=== PATIENT | female | born 1960 | race Caucasian/White ===

== ENCOUNTER → 2018-08-19 | Day surgery (SDC) | payer OTHER ==
[~2018-08-19] MED LIST: ATORVASTATIN CA80 MG PO; CETI10TA22 PO; FLUT100D IH; HYDR12.58 PO; IV RINGERS,LACTATED 1000ML 1,000 ML IV SCH; LEVO125T5 PO; LISI-130 PO; METF10007 PO; MONT10TA6 PO; PROPOFOL 20 ML IV ONE; RANI300C PO
[2018-08-19 10:33] VITALS: BP 128/71
--- NOTE | 2018-08-20 17:08 | PATHOLOGY ---
[facility] Accession Number: [id number] . 01 Material submitted: . PART A: SMALL BOWEL BIOPSY PART B: GASTRIC ANTRUM BIOPSY PART C: DISTAL ESOPHAGUS BIOPSY . 01 Clinical history: . GERD . 02 Diagnosis: A. Small bowel biopsy: - No significant pathologic abnormalities. . B. Gastric biopsy, antrum: - Chronic gastritis, mild. . C. Esophageal biopsy, distal esophagus: - Segments of hyperplastic squamous esophageal mucosa and gastric mucosa showing mild chronic inflammation, consistent with reflux esophagitis. LBQ/08/20/2018 . 02 Comment: Sections of the small bowel biopsy reveal segments of duodenal mucosa with focally prominent submucosal Nestor's glands. Where best oriented, the mucosal villi show no sprue-like changes or significant inflammatory changes. Sections of the gastric biopsy reveal segments of gastric antral and gastric body mucosa showing congestion and mild chronic inflammation. A properly controlled immunoperoxidase stain for Helicobacter is negative for Helicobacter organisms. Sections of the distal esophageal biopsy reveals segments of hyperplastic squamous esophageal mucosa and segments of gastric mucosa showing mild chronic inflammation. The findings are consistent with reflux esophagitis. There is no evidence of Lundberg's change, dysplasia, or malignancy. (JPM/db; 08/20/2018) . Special stain performed: Immunoperoxidase stain for Helicobacter on B1 . 02 Electronically signed: . Frankie Walton MD, Pathologist NPI- [id number] . 01 Gross description: . A. Received in formalin labeled "[place] Ilda, small bowel BX," are 3 segments of wiggins soft tissue measuring 1.0 x 0.7 x 0.3 cm in aggregate dimensions and ranging from 0.3 to 0.4 cm in maximum dimension. The specimen is submitted entirely in cassette A1. . B. Received in formalin labeled "Ilda López, gastric antrum BX," are 2 segments of wiggins soft tissue measuring 1.1 x 0.3 x 0.2 cm in aggregate dimensions and ranging from 0.5 to 0.6 cm in maximum dimension. The specimen is submitted entirely in cassette B1. . C. Received in formalin labeled "[place], Ilda, distal esophagus BX," are 5 segments of wiggins soft tissue measuring 1.5 x 0.9 x 0.3 cm in aggregate dimensions and ranging from 0.2 to 0.5 cm in maximum dimension. The specimen is submitted entirely in cassette C1. (TSD; 08/19/2018) TOB/TOB . 02 Pathologist provided ICD-10: K29.50, K21.0, K21.9 . 02 CPT . 648362, 345758, 485703 Specimen Comment: A courtesy copy of this report has been sent to Specimen Comment: [phone], . Specimen Comment: Report sent to and Specimen Comment: A duplicate report has been generated due to demographic updates. Performed at: 01 [facility] [address] [facility] [address] [address], [place], [place] [id number] MD Emmanuel Gleason MD Phone: [phone] Performed at: 02 [facility] [address] [place], [place] [id number] MD Frankie Walton MD Phone: [phone]
== END | disposition home or self-care (01) ==
LOC: SURG 08:33
PROVIDERS: ATTEND Internal Medicine Gastroenterology
DX: K21.0 Gastro-esophageal reflux disease with esophagitis (principal); K44.9 Diaphragmatic hernia without obstruction or gangrene; K29.50 Unspecified chronic gastritis without bleeding; K31.89 Other diseases of stomach and duodenum; I10 Essential (primary) hypertension; J45.909 Unspecified asthma, uncomplicated; E11.9 Type 2 diabetes mellitus without complications; E78.00 Pure hypercholesterolemia, unspecified; Z83.3 Family history of diabetes mellitus; Z82.49 Family history of ischemic heart disease and other diseases of the circulatory system; Z83.79 Family history of other diseases of the digestive system; Z80.3 Family history of malignant neoplasm of breast; Z90.49 Acquired absence of other specified parts of digestive tract; Z98.51 Tubal ligation status; Z79.84 Long term (current) use of oral hypoglycemic drugs; Z79.899 Other long term (current) drug therapy
CPT/HCPCS: 43239; 88305; 88342; J2704

== ENCOUNTER → 2018-09-16 | Day surgery (SDC) | payer OTHER ==
[~2018-09-16] MED LIST changes: +HYDROmorphone 2 MG/ML VIAL IV PRN; -IV RINGERS,LACTATED 1000ML 1,000 ML IV SCH; +LIDOCAINE 2% PF 5 ML VIAL. ONE; +MORPHINE SULFATE 2 MG/ML VIAL. IV PRN; +ONDANSETRON PF 4 MG/2 ML VIAL. IV PRN; +PROCHLORPERAZINE 10 MG/2 ML VIAL. IV PRN; -PROPOFOL 20 ML IV ONE; +PROPOFOL 40 ML IV ONE; +fentaNYL PF VIAL 100 MCG/2 ML VIAL IV PRN
[2018-09-16] MEDS: IV RINGERS,LACTATED 1000ML 1,000 ML IV SCH ×2 (10:05→10:07)
[2018-09-16 11:32] VITALS: BP 133/76
--- NOTE | 2018-09-17 14:07 | PATHOLOGY ---
[facility] Accession Number: [id number] . 01 Material submitted: . PART A: TERMINAL ILEUM BIOPSY PART B: RIGHT COLON BIOPSY PART C: LEFT COLON BIOPSY . 01 Clinical history: . Nausea, CRCS . 02 Diagnosis: A. Small intestine mucosa, terminal ileum biopsy: - No significant pathologic abnormalities. . B. Colonic mucosa, right colon biopsies: - No significant pathologic abnormalities. . C. Colonic mucosa, left colon biopsies: - No significant pathologic abnormalities. . (JPM:mm; 09/17/2018) [facility]/09/17/2018 . 02 Comment: Sections of the terminal ileum biopsy reveal small intestine mucosa containing a few mucosal-associated lymphoid aggregates. There are no sprue-like changes or significant inflammatory changes. Sections of the right colon and left colon biopsies appear similar and reveal multiple segments of colonic mucosa. There is no evidence of a chronic destructive colitis, lymphocytic colitis, or collagenous colitis. There are no adenomatous changes or evidence of malignancy. . (JPM:mml; 09/17/2018) . 02 Electronically signed: . Frankie Walton MD, Pathologist NPI- [id number] . 01 Gross description: . A. Received in formalin labeled "Ilda López, terminal ileum BX," is a single segment of wiggins soft tissue measuring 0.6 cm in maximum dimension. The specimen is entirely submitted in cassette A1. . B. Received in formalin labeled "[place], Ilda, right colon BX," are 3 segments of wiggins soft tissue measuring 1.0 x 0.9 x 0.3 cm in aggregate dimensions and ranging from 0.4 to 0.5 cm in maximum dimension. The specimen is submitted entirely in cassette B1. . C. Received in formalin labeled "Ilda López, left colon BX," are 3 segments of wiggins soft tissue measuring 1.1 x 0.8 x 0.2 cm in aggregate dimensions and ranging from 0.3 to 0.5 cm in maximum dimension. The specimen is submitted entirely in cassette C1. (TSD; 09/16/2018) TOB/TOB . 02 Pathologist provided ICD-10: R11.0, Z86.010 . 02 CPT . 525707, 116624, 474968 Specimen Comment: A courtesy copy of this report has been sent to Specimen Comment: [phone], . Specimen Comment: Report sent to / DR RODRIGUEZ Performed at: 01 [facility] [address] [facility] [facility] [address], [place] [id number] MD Emmanuel Gleason MD Phone: [phone] Performed at: 02 [facility] [address], [place] [id number] MD Frankie Walton MD Phone: [phone]
== END | disposition home or self-care (01) ==
LOC: SURG 09:34
PROVIDERS: ATTEND Internal Medicine Gastroenterology
DX: K57.30 Diverticulosis of large intestine without perforation or abscess without bleeding (principal); K64.0 First degree hemorrhoids; Z91.048 Other nonmedicinal substance allergy status; J45.909 Unspecified asthma, uncomplicated; E11.9 Type 2 diabetes mellitus without complications; I10 Essential (primary) hypertension; E78.00 Pure hypercholesterolemia, unspecified; Z80.3 Family history of malignant neoplasm of breast; Z83.79 Family history of other diseases of the digestive system; Z83.3 Family history of diabetes mellitus; Z82.49 Family history of ischemic heart disease and other diseases of the circulatory system; Z79.899 Other long term (current) drug therapy; Z79.84 Long term (current) use of oral hypoglycemic drugs; Z98.51 Tubal ligation status; Z90.49 Acquired absence of other specified parts of digestive tract; Z98.890 Other specified postprocedural states; Z87.19 Personal history of other diseases of the digestive system; Z86.010 Personal history of colon polyps
CPT/HCPCS: 45380; 88305; J2001; J2704

== ENCOUNTER 2019-05-09 09:53 | Day surgery (SDC) | payer OTHER ==
[~2019-05-09] VITALS: Ht 165.1 cm; Wt 124.0 kg
[~2019-05-09 09:53] MED LIST changes: +BUPIVACAINE-EPI 0.5%-1:200000 MPF 30 ML VIAL. INJ ONE; +CHOL100014 PO; +CINN500C2 PO; +FAMO40TA4 PO; +GINK30CA PO; +IV RINGERS,LACTATED 1000ML 1,000 ML IV SCH; +LIDOCAINE 1% PF 2 ML VIAL. ID PRN; -LIDOCAINE 2% PF 5 ML VIAL. ONE; +METF500T16 PO; +MONT10TA49 PO; -MONT10TA6 PO; +MULT-246 PO; +OMEG1CAP50 PO; -PROPOFOL 40 ML IV ONE; +ceFAZolin SODIUM 3 GM in IV DEXTROSE 5% 100ML 100 ML IV PRN
[2019-05-09] MEDS ORDERED: fentaNYL PF VIAL 100 MCG/2 ML VIAL ONE ×2 (10:28→13:27)
[2019-05-09] MEDS ORDERED: MIDAZOLAM HCL/PF 2 MG/2 ML VIAL. ONE (10:28)
[2019-05-09] MEDS ORDERED: DEXAMETHASONE SOD PHOS 4 MG/ML VIAL ONE (10:28)
[2019-05-09] MEDS ORDERED: ONDANSETRON PF 4 MG/2 ML VIAL. ONE (10:28)
[2019-05-09] MEDS ORDERED: ROCURONIUM 50 MG/5 ML VIAL. ONE (10:28)
[2019-05-09] MEDS ORDERED: LIDOCAINE 2% PF 5 ML VIAL. ONE (10:28)
[2019-05-09] MEDS ORDERED: FAMOTIDINE 20 MG/2 ML VIAL ONE (10:28)
[2019-05-09] MEDS ORDERED: PROPOFOL 20 ML IV ONE (10:28)
[2019-05-09] MEDS ORDERED: INSULIN LISPRO 100 UNIT/ML 3ML VIAL for OP,RR ONLY. SQ PRN (11:00)
[2019-05-09] MEDS ORDERED: NEOSTIGMINE METHYLSULFATE 5 MG/5 ML SYRINGE. ONE (12:32)
[2019-05-09] MEDS ORDERED: GLYCOPYRROLATE 1 MG/5 ML VIAL. ONE (12:33)
[2019-05-09] MEDS ORDERED: SEVOFLURANE 61 TO 120 MINUTES. IH ONE (12:37)
--- NOTE | 2019-05-09 12:55 | PDOC4 ---
Operative Note Operative Note Preoperative Diagnosis: Appendiceal mass Postoperative Diagnosis: Same Procedure: Laparoscopic appendectomy Surgeon: Noel Anesthesia: Gen. EBL: 10 mL Specimen: Appendix to pathology Drains: None Complications: None Indication: The patient is a 59 year old female who was evaluated for chronic abdominal pain. The evaluation included a CT scan which showed a mass of the appendix. The patient was offered surgical treatment with a laparoscopic appendectomy and she was aware of the potential for an open surgery or larger colon resection. The risks of surgery were discussed which include bleeding, infection, visceral injury, pain, anesthetic risk, potential need for additional surgery or procedure. The patient understands and would like to proceed. Description: The patient was taken to the operating room and placed supine on the operating table. Gen. anesthesia was performed. The abdomen was prepped with ChloraPrep and draped in a standard surgical manner. An incision was made in the patient's left abdomen through which a visualized 5 mm trocar was inserted and the pneumoperitoneum was created. In the left lower quadrant a 5 mm trocar was inserted. In the suprapubic region a 12 mm trocar was inserted. The appendix was identified and showed some enlargement but no acute inflammatory process. There was a clearly visualized mass effect in the proximal portion of the appendix. The mesoappendix was bluntly from the appendix. The mesoappendix was controlled using several clips and it was divided. The appendix was then amputated with a cuff of cecum using a 60 mm [place] stapler. The specimen was then placed in an endoscopic bag and extracted at the suprapubic incision site. The fascia there was closed with 0 Vicryl and infiltrated with half percent Marcaine with epinephrine. The RLQ was visualized and the staple line appeared well intact and hemostasis was good. No other abnormalities were identified grossly. The remaining ports were removed and the pneumoperitoneum was relieved. The skin at all incision sites was closed with 4-0 Monocryl. Steri-Strips and dressings were applied. The patient tolerated the procedure well and was sent to the recovery room in stable condition. At the end of the case all counts were correct. BEENA CALVO MD May 09, 2019 12:55
--- NOTE | 2019-05-09 12:58 | DISCH ---
DISCHARGE INSTRUCTIONS Condition on Discharge Condition on Discharge: Stable Activity After Discharge Activity Instructions for Disc: Other, see below (no lifting over 20 lbs X 2 weeks) Driving Instructions after Dis: Other, see below (no driving while taking pain meds) Diet after Discharge Diet after Discharge: Regular Wound Incision Care Wound/Incision Care: Other, see below (may remove bandaids tomorrow and shower) Follow-Up Follow up with: Dr Calvo in office in 2 weeks, call for appt [phone] BEENA CALVO MD May 09, 2019 12:58
[2019-05-09] MEDS ORDERED: OXYC-325 PO (13:08)
[2019-05-09] MEDS ORDERED: ALBUTEROL SULFATE 2.5 MG/3 ML NEBU. ONE (13:41)
[2019-05-09] MEDS ORDERED: ALBUTEROL SULFATE 2.5 MG/3 ML NEBU. NEB ONE (13:45)
[2019-05-09] MEDS ORDERED: oxyCODONE/APAP 5/325 1 TAB TABLET PO ONE ×2 (13:45)
[2019-05-09] MEDS: fentaNYL PF VIAL 100 MCG/2 ML VIAL IV PRN ×2 (13:46→14:08)
[2019-05-09 15:13] VITALS: BP 117/55
--- NOTE | 2019-05-11 15:07 | PATHOLOGY ---
[facility] Accession Number: [id number] . 01 Material submitted: . appendix - APPENDIX . 01 Clinical history: . Appendix disease . 02 Diagnosis: Appendix, laparoscopic appendectomy: - Mucinous cystadenoma of appendix, with focal chronic appendicitis and dystrophic calcification. (JPM:migdalia; 05/11/2019) S 05/11/2019 1420 Local . 02 Comment: There is no mucin identified on the serosal surface or within the mesoappendix. (JPM:migdalia; 05/11/2019) . 02 Electronically signed: . Frankie Walton MD, Pathologist NPI- [id number] . 01 Gross description: . The specimen is received in formalin, labeled "Ilda López, appendix". Received is a vermiform appendix measuring 2.2 cm in length by up to 1.1 cm in diameter. There is attached possible cecum present measuring 1.6 cm in length by 3.3 cm in diameter. The serosal surfaces are pale wiggins to vogel-wiggins in appearance. The specimen is firm upon palpation. The willy are removed and the surgical margin is inked black. Sectioning reveals a large amount of calcification present at the appendiceal orifice sectioning through the appendix reveals a patent lumen with prominent mucosa identified, and filled with possible mucoid material. The appendix is submitted entirely as follows: . A1 proximal margin A2 bisected tip A3-A5 remainder of specimen submitted from proximal to distal aspects, with cassette A3 submitted following light decalcification. (CAA; 05/10/2019) QAC/QAC 05/11/2019 0859 Local . 02 Pathologist provided ICD-10: D12.1, K36 . 02 CPT . 497322 Specimen Comment: A courtesy copy of this report has been sent to [phone], [phone] Specimen Comment: [phone] Specimen Comment: Report sent to / DR RODRIGUEZ Performed at: 01 [place] [id number] [address] [id number] MD Emmanuel Gleason MD Phone: [phone] Performed at: 02 [facility] [address] [place], [place] [id number] MD Frankie Walton MD Phone: [phone]
== END 2019-05-09 15:36 | disposition home or self-care (01) ==
LOC: SURG 09:53
PROVIDERS: ATTEND Surgery
DX: K36 Other appendicitis (principal); D12.1 Benign neoplasm of appendix; G47.30 Sleep apnea, unspecified; I10 Essential (primary) hypertension; E78.00 Pure hypercholesterolemia, unspecified; K21.9 Gastro-esophageal reflux disease without esophagitis; J45.909 Unspecified asthma, uncomplicated; Z87.891 Personal history of nicotine dependence; Z86.010 Personal history of colon polyps; Z98.51 Tubal ligation status
CPT/HCPCS: 44970; 82962; 88304; 94640; A7015; J1100; J2001; J2250; J2405; J2704; J2710; J3010; J3490; J7030; J7613